=== PATIENT | female | born 1990 | race African-American/Black ===

== ENCOUNTER → 2019-09-07 | Emergency (ER) | payer SELFPAY ==
[~2019-09-07] VITALS: Ht 165.1 cm; Wt 53.1 kg
[~2019-09-07] MED LIST: CEPHALEXIN500 MG ORAL; TYLENOL EXTRA500 MG ORAL; Tetanus/Diptheria/Pertussis IM ONE
[2019-09-07 07:10] VITALS: BP 107/73
--- NOTE | 2019-09-07 07:15 | NUR ---
ED Nurse Note: patient walked into ED from home c/o swelling of the right middle finger due to ring being stuck. patient has mild swelling around the middle finger noted. patient is alert awake x4 ambulatory steady gait, breathing unlabored and even, speaking in full sentences.
--- NOTE | 2019-09-07 07:42 | NUR ---
ED Nurse Note: Dr. Castillo at bedside with [facility]. Ice packs provided to the patient.
--- NOTE | 2019-09-07 08:02 | Emergency Room Report ---
History of Present Illness General Chief Complaint: Pain Source: Patient Present Illness HPI 28-year-old [id number] female with no prior medical history presents with ring stuck on her middle finger for the last 2 days. Patient typically wears her rings on her fourth digit, however a week ago thought it looked better on her middle finger and replaced it. Denies trauma, cuts, rashes to the area. Last night she reports increased swelling distal to the digit. She tried to remove the ring with loss but was unsuccessful. She delayed seeking medical treatment until this morning when she started to experience pain at the distal tip of the finger. The patient's symptoms were gradual onset, severity was moderate, duration since 2 days. Quality: Aching Severity: Moderate Past medical history: Denies Past surgical history: Denies Smoking: Denies Alcohol use: Denies Drug use: Denies Review of systems: CONST: No fevers or chills, No night sweats PULMONARY: No productive cough, No shortness of breath CARDIAC: No chest pain, No palpitations GI: No vomiting, No diarrhea , No melena_or_BRBPR : No dysuria, No hematuria, No discharge NEURO: No new_focal_weakness_or_numbness, No confusion, No vision changes 14 point Review of Systems is otherwise negative except per HPI Physical Exam: GENERAL: Awake_alert_ nontoxic, no acute distress Spo2 100% on RA -normal EYES: Extraocular muscles are intact. Conjunctivae clear. Lids without swelling ENT: External nose and ear normal_in_appearance. Oropharynx clear. Head_ atraumatic, Moist_oral_mucosa NECK: No JVD. No meningismus. No thyromegaly. Supple. Trachea midline RESP: Normal respiratory effort. Symmetric rise. No stridor. Clear_to_ auscultation_No_rales_No_wheezes CARDIAC: [Regular rate] and regular rhythm on_auscultation No_significant pedal edema. ABDOMEN: Soft. Nondistended. Nontender_No_rebound_or_guarding. MSK: Normal muscle tone, without rigidity. Extremities without asymmetric deformity or swelling. R HAND Upper extremity exam: right Elbow: No swelling / effusion appreciated, no significant pain with passive range of motion Wrist: No swelling / effusion appreciated, no significant pain with passive range of motion Lateral epicondyle: no tenderness / swelling / ecchymoses Medial epicondyle: no tenderness / swelling / ecchymoses Radial pulse: 2+ Capillary refill: <3 seconds in all fingers R MIDDLE finger: thick metal ring at the base of the 3rd MCP with swelling distal to MCP/PIP joint. Patient is able to flex/extend @ MCP PIP DIP No abrasion, no cuts. SILT. No cellulitis Scaphoid: no tenderness / swelling / ecchymoses, no pain with axial loading of the thumb Radian / Median / Ulnar nerves: all intact (finger opposition, finger adduction / abduction, thumb dorsiflexion) Sensation intact to light touch: in all fingers Strength 5/5 with: wrist dorsi / volar flexion, hand rawhide bone roller, elbow flexion / extension SKIN: Warm and dry. No visible cyanosis or pallor NEUROLOGIC: Alert, oriented x3. Motor_and_sensation_grossly_intact. No truncal ataxia. Gait_normal Psych: Normal mood and affect, normal judgment and insight - COORDINATION OF CARE Case was discussed with: Patient Medical Decision Making/Plan: DDx: swollen finger 2/2 hematoma vs ring entrapment vs unlikely cellulitis. R/o Compartment syndrome of R middle finger R/o ischemic digit 28-year-old [id number] female presents with ring finger stuck on her third digit. There is swelling of the middle finger distal to the ring (distal to MCP/PIP joint). Patient is neurovascularly intact although there is prominent swelling. She is able to flex and extend at the middle finger. Sensation is intact to light touch. Multiple attempts were performed to remove the ring First attempt was with motorized ring drummel but since it was too dull we called engineering to replace the blade for a sharper one. In the mean time, we used manual ring drummel which allowed us to cut a few slits in the ring. Also attempted the floss technique with no success. Motorized ring drummel was again attempted but unsuccessful. 0750: Engineering to bedside to attempt removal. Still no signs of compartment syndrome 0815: Failed Attemp #3 with motorized ring 0830: LAFD to bedside with tools. 0900: Ring removed successfully. Pt tolerated procedure well but has a superficial abrasion to the palmar 3rd digit. No laceration. Tdap given. Rx for keflex given. Recommend tylenol OTC for pain control. No signs of ischemic digit or compartment syndrome s/p ring removal. Intact AIN PIN Median Radial ulnar n. Intact flex/extension at MCP PIP and DIP I recommended PMD follow-up within 1-2 days. Also advised that the patient return to the Emergency Department as soon as possible if they experience any new, persistent, or worsening symptoms. Allergies: Coded Allergies: No Known Allergies (Unverified , 09/07/19) COVID-19 Screening Contact w/high risk pt: No Experienced COVID-19 symptoms?: No COVID-19 Testing performed VENEER MARKER: Yes - 06/23/2019 COVID-19 Screening: Negative COVID-19 COVID-19 Testing Source: oral Patient History Last Menstrual Period: 08/09/2019 Nursing Documentation-[facility] Past Medical History: No Stated History Physical Exam Vital Signs Date Time Temp Pulse Resp B/P (MAP) Pulse Ox O2 Delivery O2 Flow Rate FiO2 09/07/19 07:10 98.1 70 16 107/73 (84) 100 Room Air Sp02 EP Interpretation: reviewed, normal Procedures Critical Care Time Critical Care Time Critical Care Statement Organ systems at risk include: circulatory, risk of ischemic injury Critical care performed for 45 minutes. Time is exclusive of separately billable procedures. Time includes: direct patient care, continuous monitoring and multiple patient reassessment, coordination of patient care, review of patient's medical records , medical consultation, family consultation regarding treatment decisions and documentation of patient care. Additional Procedure Procedure Narrative Right middle finger ring removal Indication: Stuck ring Attempted 3 times with manual, electric drummel. Attempted with floss technique. Eventually got ring off using pliers, manual drummel and floss technique. Pt tolerated well with superficial abrasion to middle finger. Tdap given. NVI pre and post procedure. Medical Decision Making Diagnostic Impression: Primary Impression: Swelling of right middle finger Additional Impressions: Ring stuck Finger abrasion Reevaluation Time: 08:00 Last Vital Signs Date Time Temp Pulse Resp B/P (MAP) Pulse Ox O2 Delivery O2 Flow Rate FiO2 09/07/19 07:10 98.1 70 16 107/73 100 Room Air Status: unchanged Disposition: HOME, SELF-CARE Admit Decision Time: 08:00 Condition: Stable Scripts Cephalexin* (KEFLEX*) 500 Mg Capsule 500 MG ORAL EVERY 12 HOURS, #14 CAP 0 Refills Prov: CastilloMelany ny D.O. 09/07/19 Acetaminophen* (TYLENOL EXTRA STRENGTH*) 500 Mg Tablet 500 MG ORAL Q8H PRN for Prn Headache/Temp > 101, #30 TAB 0 Refills Prov: Melany Castillo D.O. 09/07/19 Referrals: NOT CHOSEN IPA/,REFERRING (PCP) Patient Instructions: Finger Sprain, [id number] Additional Instructions: Instructions for patient/regulated program manager: Follow up with your physician in 1-2 days for wound check. Do not wear any rings on your hands for several weeks Follow-up with your doctor sooner if your condition requires a more timely clinical reevaluation. Return to the emergency department immediately if you feel that your condition is worsening or if you have any new or concerning symptoms. Review your discharge instructions and take any prescriptions given as instructed. Melany Castillo D.O. Sep 07, 2019 08:02
[2019-09-07 09:33] VITALS: BP 110/72
--- NOTE | 2019-09-07 09:33 | NUR ---
ED Nurse Note: tetanus shot was actually given on the right arm, not left arm. patient tolerated without complication. patient has abrasion on the right middle finger.
--- NOTE | 2019-09-07 09:34 | NUR ---
ER DISCHARGE NOTE: Patient is cleared to be discharged per ERMD Dr. Castillo, pt is aox4, on room air, with stable vital signs. pt was given dc and prescription instructions, pt was able to verbalize understanding, pt id band removed without complications. pt is able to ambulate with steady gait. pt took all belongings.
== END | disposition home or self-care (01) ==
LOC: EMR 07:30
DX: S60.442A External constriction of right middle finger, initial encounter (principal); S60.412A Abrasion of right middle finger, initial encounter; W49.04XA Ring or other jewelry causing external constriction, initial encounter
CPT/HCPCS: 99291